=== PATIENT | female | born 1970 | race Caucasian/White ===

== ENCOUNTER 2023-12-05 07:46 | Emergency (ER) | payer OTHER, SELFPAY ==
[2023-12-05 07:51] VITALS: BP 115/72; PULSE 61; RESP 17; TEMP 36.9; O2SAT 97; BMI 21.1
--- NOTE | 2023-12-05 09:28 | ED_ITS ---
HPI - Eye Problem General Chief complaint: Eye Problems Stated complaint: Swollen R eye, trouble seeing Time Seen by Provider: 12/05/23 09:12 Related Data Previous Rx's ?Medication ?Instructions ?Recorded cephalexin 500 mg tablet 500 mg PO Q6H 10 days #40 tabs 12/05/23 erythromycin 5 mg/gram (0.5 %) eye 1 appl ophthalmic (eye) TID 5 days 12/05/23 ointment #3.5 grams Allergies Allergy/AdvReac Type Severity Reaction Status Date / Time No Known Allergies Allergy Verified 12/05/23 07:53 Review of Systems 2 Review of Systems: Yes all other systems are reviewed and are negative [facility] Past Medical History Attestation statement: The following information was validated with the patient. Source: old records reviewed and nursing notes reviewed Social History Social History Advance Directives: No Advance Directives Information Provided: Yes Do you have a plan to hurt others: No Plan Physical Exam 2 Vital Signs: Vital Signs: Last Vital Signs Temp 98.4 F 12/05/23 07:51 Pulse 61 12/05/23 07:51 Resp 17 12/05/23 07:51 BP 115/72 12/05/23 07:51 Pulse Ox 97 12/05/23 07:51 O2 Del Method Room Air 12/05/23 07:51 BMI result Body Mass Index 21.1 vss Appearance: Alert.? Oriented X3.? No acute distress.? Head: Normocephalic, atraumatic, no step-offs or deformities Eyes: Pupils equal, round and reactive to light.? + periorbital erythema, warmth and swelling to r upper eye lid. No abscess. Pain free EOM b/l. CVS: Normal heart rate and rhythm.? Pulses normal.? Respiratory: No respiratory distress.? Breath sounds normal.? Abdomen: Soft and nontender.? Skin: Skin warm and dry.? Normal skin color.? Normal skin turgor.? Extremities: No lower extremity edema.? No calf ttp. 5/5 strength to bilateral upper and lower extremities Back: No midline tenderness, no C-spine tenderness, full range of motion, no CVA tenderness bilaterally Neuro: Oriented X 3.? No motor deficit.? No sensory deficit. CN 2-12 intact Course Reevaluation(s) Reevaluation #1: Patient to be discharged home with erythromycin as well as Keflex. Educated patient on diagnosis and treatment plan, answered all question, patient verbalizes understanding. At this time patient will be discharged home, advised to return with new or worsening symptoms. Educated on worrisome signs and symptoms and when to return. At this time I feel comfortable discharge home. Time: 09:32 Medical Decision Making Medical Decision Making [facility] Narrative: [id number] yo f presents w/ r upper eye lid redness, swelling, and pain since yesterday.No FB sensation PE- Pupils equal, round and reactive to light.? + periorbital erythema, warmth and swelling to r upper eye lid. No abscess. Pain free EOM b/l. Strain physical exam concerning for hordeolum with periorbital cellulitis. Unlikely orbital cellulitis, unlikely necrotizing infection. No signs of corneal abrasion or foreign body in eye. Plan at this time will do visual acuity. Likely discharge home with p.o. and ophthalmic antibiotics. Will have her follow-up with ophthalmology Differential Diagnosis Differential Diagnoses: The differential diagnosis associated with the presentation includes Strain physical exam concerning for hordeolum with periorbital cellulitis. Unlikely orbital cellulitis, unlikely necrotizing infection. No signs of corneal abrasion or foreign body in eye. Admission/Observation Consideration of admission/observation: Escalation of care including admission/observation considered Unlikely Prescription Management I considered prescription management with: Antibiotic Critical Care Time Critical Care Time Critical Care Time: No Discharge Plan Discharge Clinical Impression: Hordeolum, Periorbital cellulitis of right eye Patient Disposition: Home, Self-Care Instructions: Cellulitis (ED), Stye (ED), Periorbital Cellulitis in Adults (ED) Additional Instructions: Take your medications as prescribed. If you were prescribed antibiotics today, it is important that you take your medication to their entirety, do not skip any doses, do not finish them early. Follow-up with your primary care provider this week. Return to the emergency department with new or worsening symptoms. In case of emergency call 911 Prescriptions: New erythromycin 5 mg/gram (0.5 %) ointment 1 appl ophthalmic (eye) TID 5 Days Qty: 3.5 0RF cephalexin 500 mg tablet 500 mg PO Q6H 10 Days Qty: 40 0RF Referrals: Victorino Dacosta MD [Primary Care Provider] - 1 week Stand Alone Forms: Work/School Release Print Language: Citizen Of [place]
[2023-12-05 09:38] VITALS: BP 113/70; PULSE 81; RESP 14; TEMP 37.1; O2SAT 100
[2023-12-05 09:44] VITALS: BP 119/70; PULSE 81; RESP 14; TEMP 37.1; O2SAT 100
== END 2023-12-05 09:47 | disposition home or self-care (01) ==
PROVIDERS: Emergency Provider Emergency Medicine; PCP Internal Medicine
DX: H00.011 Hordeolum externum right upper eyelid (principal); L03.213 Periorbital cellulitis; H57.11 Ocular pain, right eye
CPT/HCPCS: 99283